=== PATIENT | female | born 1970 | race Caucasian/White ===

== ENCOUNTER → 2016-09-15 | Outpatient (CLI) | payer BC ==
[2016-09-08 17:47] VITALS: BP 109/64
[~2016-09-15] MED LIST: ATOR40TA59 PO; DOXY100C2 PO; FLEC100T PO; LEVO175T5 PO; METH25VI27 SQ; METO25TA2 PO; PROAIR HFA8.5 GM INH; WARF5TAB7 PO; WARF7.5T PO
--- NOTE | 2016-09-15 13:11 | KCIC ---
PROCEDURE Two-view chest HISTORY Atypical pneumonia. Cough. Wheezing. Former smoker. COMPARISON Two-view chest images from 09/08/2016 are available, although that report is not available for comparison. FINDINGS The cardiac silhouette remains mildly enlarged. Valvular prosthesis and postsurgical changes of the chest are re-demonstrated. No evidence of a pneumothorax. No focal airspace consolidation. No evidence of pleural effusion. The aorta remains mildly tortuous. IMPRESSION No significant change or focal airspace disease. Electronically signed by: Bi Perez MD (Sep 15, 2016 13:10:05)
== END | disposition home or self-care (01) ==
LOC: KCIC 12:34
PROVIDERS: ATTEND Nurse Practitioner Family
DX: J18.9 Pneumonia, unspecified organism (principal); R06.2 Wheezing; I51.7 Cardiomegaly; Z87.891 Personal history of nicotine dependence
CPT/HCPCS: 71020

== ENCOUNTER → 2017-05-03 | Outpatient (CLI) | payer BC ==
[2016-09-08 17:47] VITALS: BP 109/64
[~2017-05-03] MED LIST changes: -WARF7.5T PO; +WARF7.5T48 PO
[2017-05-03 15:24] LABS: INR 1.1 (0.8-1.1); PROTHROMBIN TIME PATIENT 13.4 SEC (11.7-14.0)
== END | disposition home or self-care (01) ==
LOC: LAB 14:36
PROVIDERS: ATTEND Internal Medicine Cardiovascular Disease
DX: I11.0 Hypertensive heart disease with heart failure (principal); I50.22 Chronic systolic (congestive) heart failure; I48.91 Unspecified atrial fibrillation; E78.00 Pure hypercholesterolemia, unspecified; J44.9 Chronic obstructive pulmonary disease, unspecified; D64.9 Anemia, unspecified; Z95.2 Presence of prosthetic heart valve
CPT/HCPCS: 36415; 85610

== ENCOUNTER → 2017-09-08 | Outpatient (CLI) | payer BC ==
[2016-09-08 17:47] VITALS: BP 109/64
--- NOTE | 2017-09-08 18:00 | CARD ---
MR#: [id number] Date of Study: 09/08/2017 Ordering Physician: COLT SILVA, Referring Physician: COLT SILVA, Tech: Nish Torres [facility] APPROVED REPORT EXAM: Two-dimensional and M-mode echocardiogram with Doppler and color Doppler. Other Information Quality : FairHR: 82bpm INDICATION Congenital Heart Disease Post Mitral valve replacement Surgery/Intervention Status/Post Mitral Valve Replacement: Mechanical 2D DIMENSIONS RVDd4.4 (2.9-3.5cm)Left Atrium(2D)4.0 (1.6-4.0cm) IVSd1.2 (0.7-1.1cm)Aortic Root(2D)2.6 (2.0-3.7cm) LVDd4.3 (3.9-5.9cm)LVOT Diameter1.8 (1.8-2.4cm) PWd1.3 (0.7-1.1cm)LVDs3.1 (2.5-4.0cm) FS (%) 27.7 %SV45.2 ml LVEF(%)54.1 (>50%) Aortic Valve AoV Peak Jasiel.163.4cm/sAoV VTI38.2cm AO Peak GR.10.7mmHgLVOT Peak Jasiel.95.5cm/s AO Mean GR.5mmHgAVA (VMAX)1.06cm2 Mitral Valve MV E Gvtsqnsg370.7cm/sMV DECEL [id number] MV A Jfheziln575.6cm/sMV VXU04fl E/A Ratio2.2MVA (PHT)3.28cm2 Pulmonary Valve PV Peak Pwmdjyqg611.1cm/sPV Peak Grad.4mmHg Tricuspid Valve TR P. Cruwcswt642kt/sTR Peak Gr.29mmHg LEFT VENTRICLE The left ventricle is normal size. There is mild concentric left ventricular hypertrophy. The left ve ntricular systolic function is normal and the ejection fraction is within normal range. EF 55% There is grossly normal LV segmental wall motion. Septal motion suggestive of prior surgery. Tissue Doppler imaging reveals moderate left ventricular diastolic dysfunction. RIGHT VENTRICLE The right ventricle is mildly dilated. The right ventricular systolic function is normal. ATRIA The left atrium is borderline dilated. The right atrium size is normal. The interatrial septum is int act with no evidence for an atrial septal defect or patent foramen ovale as noted on 2-D or Doppler i maging. AORTIC VALVE The aortic valve is thickened but opens well. Doppler and Color Flow revealed no significant aortic r egurgitation. There is mild to moderate valvular aortic stenosis. There is no aortic valvular vegetat ion. MITRAL VALVE Mechanical mitral prosthesis in place. Not well visualized. No significant regurgitation noted. MG of 8.7 mm Hg. TRICUSPID VALVE Not visualized well. Doppler and Color Flow revealed trace to mild tricuspid regurgitation. Doppler p rofile not well visualized. There is no tricuspid valve prolapse or vegetation. There is no tricuspid valve stenosis. PULMONIC VALVE Doppler and Color Flow revealed no pulmonic valvular regurgitation. There is no pulmonic valvular martinez nosis. GREAT VESSELS The aortic root is normal in size. The IVC is largel in size and collapses >50% with inspiration. PERICARDIAL EFFUSION There is no pleural effusion. There is no evidence of significant pericardial effusion. Critical Notification Critical Value: No <Conclusion> The left ventricular systolic function is normal and the ejection fraction is within normal range. EF 55% There is grossly normal LV segmental wall motion. Septal motion suggestive of prior surgery. Mechanical mitral prosthesis in place. Not well visualized. No significant regurgitation noted. MG of 8.7 mm Hg. Signed by : Colt Silva, Electronically Approved : 09/08/2017 17:59:40
== END | disposition home or self-care (01) ==
LOC: ECHO 09:56
PROVIDERS: ATTEND Internal Medicine Cardiovascular Disease
DX: I35.0 Nonrheumatic aortic (valve) stenosis (principal); I31.3 Pericardial effusion (noninflammatory); Q24.9 Congenital malformation of heart, unspecified; Z95.2 Presence of prosthetic heart valve
CPT/HCPCS: 93306

== ENCOUNTER 2017-09-12 03:05 | Emergency (ER) | payer BC ==
[2017-09-12 03:33] LABS: ADD MAN DIFF? NO
[2017-09-12 03:35] LABS: BASO % 1 % (0-3); EOS % 1 % (0-3); HEMATOCRIT 33.7 % (36.0-47.0); HEMOGLOBIN 10.8 g/dL (12.0-15.5); LYMPH # 0.5 x10^3/uL (1.0-4.8); LYMPH % 10 % (24-48); MEAN CORPUSCULAR HEMOGLOBIN 27 pg (25-35); MEAN CORPUSCULAR HGB CONC 32 g/dL (31-37); MEAN CORPUSCULAR VOLUME 83 fL (79-100); MONO # 0.7 x10^3/uL (0.0-1.1); MONO % 13 % (0-9); NEUT # 4.3 x10^3uL (1.8-7.7); NEUT % 76 % (31-73); PLATELET COUNT 149 x10^3/uL (140-400); RED BLOOD COUNT 4.04 x10^6/uL (3.50-5.40); RED CELL DISTRIBUTION WIDTH 17.9 % (11.5-14.5); WHITE BLOOD COUNT 5.6 x10^3/uL (4.0-11.0)
[2017-09-12 03:48] LABS: ANION GAP 8 (6-14); BLOOD UREA NITROGEN 15 mg/dL (7-20); BUN/CREATININE RATIO 21 (6-20); CARBON DIOXIDE 29 mmol/L (21-32); CHLORIDE 102 mmol/L (98-107); CREATININE 0.7 mg/dL (0.6-1.0); GFR 88.9; GLUCOSE 101 mg/dL (70-99); POTASSIUM 3.8 mmol/L (3.5-5.1); SODIUM 139 mmol/L (136-145)
[2017-09-12 03:53] LABS: ALBUMIN 3.1 g/dL (3.4-5.0); ALBUMIN/GLOBULIN RATIO 0.8 (1.0-1.7); ALK PHOS 62 U/L (46-116); ALT (SGPT) 38 U/L (14-59); AST (SGOT) 41 U/L (15-37); TOTAL BILIRUBIN 0.8 mg/dL (0.2-1.0); TOTAL PROTEIN 6.8 g/dL (6.4-8.2)
[2017-09-12 03:58] LABS: TROPONINI < 0.017 ng/mL (0.000-0.055)
[2017-09-12 03:59] LABS: NT-PRO BNP 750 pg/mL (0-124)
[2017-09-12] MEDS: IOHEXOL 300 MG/ML 100ML VIAL. IV (04:21)
[2017-09-12] MEDS: fentaNYL PF VIAL 100 MCG/2 ML VIAL IV (04:59)
== END 2017-09-12 06:10 | disposition home or self-care (01) ==
LOC: ER 03:05
DX: J18.9 Pneumonia, unspecified organism (principal); R07.89 Other chest pain; I50.9 Heart failure, unspecified; I48.91 Unspecified atrial fibrillation; E03.9 Hypothyroidism, unspecified; M06.9 Rheumatoid arthritis, unspecified; Z95.2 Presence of prosthetic heart valve; Z88.5 Allergy status to narcotic agent
CPT/HCPCS: 36415; 71275; 80053; 83880; 84484; 85025; 85379; 93005; 96374; 96375; 99285-25; J0690; J3010; Q9967

== ENCOUNTER → 2017-10-13 | Outpatient (CLI) | payer BC | END | disposition home or self-care (01) | LOC: RAD 15:36 | DX: R05 Cough (principal); R53.83 Other fatigue; Z95.2 Presence of prosthetic heart valve | CPT/HCPCS: 71046 ==

== ENCOUNTER 2017-10-15 17:02 | Inpatient (IN) | payer BC ==
[2017-10-15] MEDS: IPRATRPIUM/ALBUTEROL 0.5/2.5MG 3 ML NEBU. NEB (17:33)
[2017-10-15 17:39] LABS: ADD MAN DIFF? NO
[2017-10-15 17:44] LABS: BASO % 0 % (0-3); EOS # 0.1 x10^3/uL (0.0-0.7); EOS % 3 % (0-3); HEMATOCRIT 33.5 % (36.0-47.0); HEMOGLOBIN 10.8 g/dL (12.0-15.5); LYMPH # 0.6 x10^3/uL (1.0-4.8); LYMPH % 33 % (24-48); MEAN CORPUSCULAR HEMOGLOBIN 25 pg (25-35); MEAN CORPUSCULAR HGB CONC 32 g/dL (31-37); MEAN CORPUSCULAR VOLUME 78 fL (79-100); MONO # 0.3 x10^3/uL (0.0-1.1); MONO % 16 % (0-9); NEUT # 0.9 x10^3uL (1.8-7.7); NEUT % 48 % (31-73); PLATELET COUNT 140 x10^3/uL (140-400); RED BLOOD COUNT 4.31 x10^6/uL (3.50-5.40); RED CELL DISTRIBUTION WIDTH 18.3 % (11.5-14.5)
[2017-10-15] MEDS: IV NORMAL SALINE 1000ML BAG 1,000 ML IV (17:47)
[2017-10-15] MEDS: BENZONATATE 100 MG CAPSULE. PO (17:48)
[2017-10-15] MEDS: HYDROcodone/APAP 5/325MG 1 TAB TABLET PO (17:48)
[2017-10-15] MEDS: KETOROLAC 30 MG/ML INJ. IV (17:48)
[2017-10-15 17:53] LABS: WHITE BLOOD COUNT 1.9 x10^3/uL (4.0-11.0)
[2017-10-15 18:13] LABS: ANION GAP 6 (6-14); BLOOD UREA NITROGEN 17 mg/dL (7-20); BUN/CREATININE RATIO 28 (6-20); CALCIUM 8.3 mg/dL (8.5-10.1); CARBON DIOXIDE 31 mmol/L (21-32); CHLORIDE 102 mmol/L (98-107); CREATININE 0.6 mg/dL (0.6-1.0); GFR 106.3; GLUCOSE 112 mg/dL (70-99); POTASSIUM 3.7 mmol/L (3.5-5.1); SODIUM 139 mmol/L (136-145)
[2017-10-15 18:14] LABS: NT-PRO BNP 270 pg/mL (0-124)
[2017-10-15 18:18] LABS: ALBUMIN 3.3 g/dL (3.4-5.0); ALK PHOS 69 U/L (46-116); ALT (SGPT) 40 U/L (14-59); AST (SGOT) 52 U/L (15-37); MAGNESIUM 1.8 mg/dL (1.8-2.4); TOTAL BILIRUBIN 0.3 mg/dL (0.2-1.0); TOTAL PROTEIN 6.5 g/dL (6.4-8.2)
[2017-10-15 18:22] LABS: LACTIC ACID 1.3 mmol/L (0.4-2.0)
[2017-10-15 18:30] LABS: INFLUENZA A PATIENT NEGATIVE (NEGATIVE); INFLUENZA B PATIENT NEGATIVE (NEGATIVE); OBC FLU VALID
[2017-10-15] MEDS ORDERED: fentaNYL PF VIAL 100 MCG/2 ML VIAL IV (19:15)
[2017-10-15] MEDS ORDERED: ONDANSETRON PF 4 MG/2 ML VIAL. IV ×2 (19:15→20:30)
[2017-10-15] MEDS: AZITHRMYCN 500MG IVPB FOR OMNI 250 ML IV (19:56)
[2017-10-15 20:06] LABS: % ATYL 5 % (0-0); % BANDS 3 % (0-9); % EOS 4 % (0-5); % LYMPHS 32 % (24-48); % MONOS 9 % (0-10); % SEGS 47 % (35-66); ANISOCYTOSIS SLIGHT; PLT ESTIMATE ADEQUATE (ADEQUATE)
[2017-10-15 20:07] LABS: HYPOCHROMIA SLIGHT; OVALOCYTES FEW
[2017-10-15] MEDS ORDERED: cloNIDine HCL 0.1 MG TABLET PO (20:30)
[2017-10-15] MEDS ORDERED: ACETAMINOPHEN 500 MG TABLET PO (20:30)
[2017-10-15] MEDS ORDERED: diphenhydrAMINE HCL 25 MG CAPSULE PO (20:30)
[2017-10-15] MEDS ORDERED: guaiFENesin DM 200MG/20MG 10 ML SYRUP PO (20:30)
[2017-10-15] MEDS: LACTOBACILLUS RHAMNOSUS GG 1 CAPSULE. PO (22:31)
[2017-10-15] MEDS: FLECAINIDE ACETATE 50 MG TABLET. PO (22:32)
[2017-10-15] MEDS: METOPROLOL TART IMMED RELEASE 25 MG TABLET. PO ×2 (22:33→22:37)
[2017-10-16] MEDS: ANTI-COAG MONITOR BY PHARMACY. MC (01:01)
[2017-10-16] MEDS: LEVOTHYROXINE 175 MCG TABLET PO (06:04)
[2017-10-16 07:05] LABS: ANION GAP 6 (6-14); BLOOD UREA NITROGEN 18 mg/dL (7-20); CALCIUM 8.8 mg/dL (8.5-10.1); CARBON DIOXIDE 30 mmol/L (21-32); CHLORIDE 106 mmol/L (98-107); CREATININE 0.6 mg/dL (0.6-1.0); GFR 106.3; GLUCOSE 89 mg/dL (70-99); POTASSIUM 3.8 mmol/L (3.5-5.1); SODIUM 142 mmol/L (136-145)
[2017-10-16 07:09] LABS: BASO % 0 % (0-3); EOS # 0.1 x10^3/uL (0.0-0.7); EOS % 3 % (0-3); HEMATOCRIT 29.4 % (36.0-47.0); HEMOGLOBIN 9.5 g/dL (12.0-15.5); LYMPH # 0.6 x10^3/uL (1.0-4.8); LYMPH % 28 % (24-48); MEAN CORPUSCULAR HEMOGLOBIN 25 pg (25-35); MEAN CORPUSCULAR HGB CONC 32 g/dL (31-37); MEAN CORPUSCULAR VOLUME 78 fL (79-100); MONO # 0.3 x10^3/uL (0.0-1.1); MONO % 14 % (0-9); NEUT # 1.1 x10^3uL (1.8-7.7); NEUT % 55 % (31-73); PLATELET COUNT 120 x10^3/uL (140-400); RED BLOOD COUNT 3.75 x10^6/uL (3.50-5.40); RED CELL DISTRIBUTION WIDTH 18.2 % (11.5-14.5)
[2017-10-16 07:18] LABS: ADD MAN DIFF? YES
[2017-10-16] MEDS: RIVAROXABAN 10 MG TABLET. PO (09:36)
[2017-10-16] MEDS: predniSONE 5 MG TABLET PO (09:37)
[2017-10-16] MEDS: LACTOBACILLUS RHAMNOSUS GG 1 CAPSULE. PO (09:37)
[2017-10-16] MEDS: FLECAINIDE ACETATE 50 MG TABLET. PO ×2 (09:38→20:48)
[2017-10-16] MEDS: METOPROLOL SUCC 24HR ER 25 MG TAB.ER.24H. PO (09:39)
[2017-10-16] MEDS: LIOTHYRONINE 5 MCG TABLET. PO (10:16)
[2017-10-16 10:18] LABS: % ATYL 4 % (0-0); % BANDS 3 % (0-9); % EOS 5 % (0-5); % LYMPHS 20 % (24-48); % MONOS 13 % (0-10); % SEGS 55 % (35-66); PLT ESTIMATE ADEQUATE (ADEQUATE)
[2017-10-16] MEDS: IPRATRPIUM/ALBUTEROL 0.5/2.5MG 3 ML NEBU. NEB ×3 (11:51→19:37)
[2017-10-16] MEDS ORDERED: WARFARIN 7.5 MG TABLET. PO (18:00)
[2017-10-16] MEDS: cefTRIAXone IV Push 1 GM VIAL. IVP (20:47)
[2017-10-17] MEDS: LEVOTHYROXINE 175 MCG TABLET PO (06:40)
[2017-10-17] MEDS: IPRATRPIUM/ALBUTEROL 0.5/2.5MG 3 ML NEBU. NEB ×3 (07:14→15:59)
[2017-10-17] MEDS: METOPROLOL SUCC 24HR ER 25 MG TAB.ER.24H. PO (09:58)
[2017-10-17] MEDS: RIVAROXABAN 10 MG TABLET. PO (09:59)
[2017-10-17] MEDS: FLECAINIDE ACETATE 50 MG TABLET. PO (09:59)
[2017-10-17] MEDS: predniSONE 5 MG TABLET PO (09:59)
[2017-10-17] MEDS: LIOTHYRONINE 5 MCG TABLET. PO (09:59)
[2017-10-22] MEDS ORDERED: METHOTREXATE SODIUM 50 MG/2 ML VIAL SQ (09:00)
== END 2017-10-17 16:46 | disposition home or self-care (01) | DRG 193 ==
LOC: ER 17:02 → 5 SOUTH 19:05
DX: J18.9 Pneumonia, unspecified organism (principal); J96.21 Acute and chronic respiratory failure with hypoxia; I48.91 Unspecified atrial fibrillation; E86.0 Dehydration; D72.819 Decreased white blood cell count, unspecified; E03.9 Hypothyroidism, unspecified; Z95.2 Presence of prosthetic heart valve; E66.9 Obesity, unspecified; M06.9 Rheumatoid arthritis, unspecified; J20.9 Acute bronchitis, unspecified; I10 Essential (primary) hypertension; R06.03 Acute respiratory distress; Z83.3 Family history of diabetes mellitus; Z82.49 Family history of ischemic heart disease and other diseases of the circulatory system; Z68.37 Body mass index [BMI] 37.0-37.9, adult; Z98.51 Tubal ligation status; Z79.899 Other long term (current) drug therapy
CPT/HCPCS: 36415; 71045; 80048; 80053; 83605; 83735; 83880; 84484; 85007; 85025; 87040; 87804; 87804-59; 94640; 94760; 96361; 96374; 99285; 99285-25; J0456; J0690; J0696; J1885; J7030; J7512; J7620

== ENCOUNTER → 2017-12-14 | Outpatient (CLI) | payer BC | END | disposition home or self-care (01) | LOC: RAD 10:28 | DX: I51.7 Cardiomegaly (principal); R06.09 Other forms of dyspnea | CPT/HCPCS: 71046 ==

== ENCOUNTER 2017-12-16 12:42 | Inpatient (IN) | payer BC ==
[2017-12-16] MEDS: IV NORMAL SALINE 1000ML BAG 1,000 ML IV ×3 (12:56→21:15)
[2017-12-16 13:21] LABS: BASO % 0 % (0-3); EOS % 2 % (0-3); HEMATOCRIT 26.9 % (36.0-47.0); HEMOGLOBIN 8.4 g/dL (12.0-15.5); LYMPH # 0.3 x10^3/uL (1.0-4.8); LYMPH % 18 % (24-48); MEAN CORPUSCULAR HEMOGLOBIN 22 pg (25-35); MEAN CORPUSCULAR HGB CONC 31 g/dL (31-37); MEAN CORPUSCULAR VOLUME 69 fL (79-100); MONO # 0.2 x10^3/uL (0.0-1.1); MONO % 12 % (0-9); NEUT # 1.3 x10^3uL (1.8-7.7); NEUT % 68 % (31-73); PLATELET COUNT 172 x10^3/uL (140-400); RED BLOOD COUNT 3.89 x10^6/uL (3.50-5.40); RED CELL DISTRIBUTION WIDTH 18.8 % (11.5-14.5)
[2017-12-16 13:35] LABS: ANION GAP 9 (6-14); BLOOD UREA NITROGEN 12 mg/dL (7-20); CALCIUM 9.1 mg/dL (8.5-10.1); CARBON DIOXIDE 28 mmol/L (21-32); CHLORIDE 103 mmol/L (98-107); CREATININE 0.6 mg/dL (0.6-1.0); GFR 106.3; GLUCOSE 91 mg/dL (70-99); POTASSIUM 3.7 mmol/L (3.5-5.1); SODIUM 140 mmol/L (136-145)
[2017-12-16 13:38] LABS: ADD MAN DIFF? YES
[2017-12-16] MEDS: 0.9 % SODIUM CHLORIDE 10 ML DISP.SYRIN. IV (13:43)
[2017-12-16] MEDS: ASPIRIN CHEWABLE 81 MG TABLET. PO (13:43)
[2017-12-16 13:45] LABS: BARBITURATES NEG (NEG); BENZODIAZEPINES NEG (NEG); CANNABINOIDS NEG (NEG); COCAINE NEG (NEG); INR 1.7 (0.8-1.1); METHADONE NEG (NEG); OPIATES NEG (NEG); PHENCYCLIDINE NEG (NEG); PROTHROMBIN TIME PATIENT 19.1 SEC (11.7-14.0)
[2017-12-16 13:46] LABS: ALBUMIN 3.2 g/dL (3.4-5.0); ALK PHOS 82 U/L (46-116); ALT (SGPT) 21 U/L (14-59); AST (SGOT) 32 U/L (15-37); DIRECT BILIRUBIN 0.1 mg/dL (0.0-0.2); LIPASE 271 U/L (73-393); MAGNESIUM 1.7 mg/dL (1.8-2.4); TOTAL BILIRUBIN 0.5 mg/dL (0.2-1.0); TOTAL PROTEIN 7.5 g/dL (6.4-8.2)
[2017-12-16 13:47] LABS: AMPHETAMINE/METHAMPHETAMINE NEG (NEG); ETHANOL, URINE NEG (NEG)
[2017-12-16 13:47] LABS: TROPONINI < 0.017 ng/mL (0.000-0.055)
[2017-12-16 13:48] LABS: THYROID STIM HORMONE (TSH) 0.035 uIU/mL (0.358-3.74)
[2017-12-16 13:48] LABS: BILIRUBIN,URINE NEGATIVE (NEG); CLARITY,URINE CLEAR; COLOR,URINE YELLOW; GLUCOSE,URINE NEGATIVE (NEG); NITRITE,URINE NEGATIVE (NEG); PH,URINE 7.5; PROTEIN,URINE 30 mg/dL (NEG-TRACE)
[2017-12-16 13:55] LABS: CKMB MASS < 0.5 ng/mL (0.0-3.6); CREATINE KINASE 33 U/L (26-192)
[2017-12-16 13:55] LABS: NT-PRO BNP 1077 pg/mL (0-124)
[2017-12-16 13:59] LABS: BACTERIA,URINE FEW /HPF (0-FEW); SQUAMOUS EPITHELIAL CELL,UR FEW /LPF
[2017-12-16 14:43] LABS: % BANDS 1 % (0-9); % LYMPHS 23 % (24-48); % MONOS 3 % (0-10); % SEGS 73 % (35-66)
[2017-12-16 14:45] LABS: HYPOCHROMIA SLIGHT; MICROCYTOSIS MOD; OVALOCYTES OCC; PLATELET CLUMP PRESENT; PLT ESTIMATE DECREASED (ADEQUATE); SCHISTOCYTES OCC
[2017-12-16] MEDS ORDERED: ACETAMINOPHEN 325 MG TABLET. PO (15:00)
[2017-12-16] MEDS ORDERED: NITROGLYCERIN SUBLINGUAL 0.4 MG BOTTLE OF 25. SL (15:00)
[2017-12-16] MEDS ORDERED: ONDANSETRON PF 4 MG/2 ML VIAL. IV (15:00)
[2017-12-16] MEDS: fentaNYL PF VIAL 100 MCG/2 ML VIAL IV ×2 (15:08→21:02)
[2017-12-16] MEDS: MAGNESIUM SULFATE 1GM 100 ML IV (17:22)
[2017-12-16 18:12] LABS: TROPONINI < 0.017 ng/mL (0.000-0.055)
[2017-12-16] MEDS ORDERED: RIVAROXABAN 10 MG TABLET. PO (18:30)
[2017-12-16] MEDS: METOPROLOL SUCC 24HR ER 25 MG TAB.ER.24H. PO (21:02)
[2017-12-16 21:06] LABS: TROPONINI < 0.017 ng/mL (0.000-0.055)
[2017-12-17] MEDS: IV NORMAL SALINE 1000ML BAG 1,000 ML IV (05:06)
[2017-12-17 05:54] LABS: CHOLESTEROL 117 mg/dL (0-200); CHOLESTEROL/HDL RATIO 3.2; HDLC 37 mg/dL (40-60); LDLC 70 mg/dL (0-100); NON-HDL CHOLESTEROL 80 mg/dL (0-129); TRIGLYCERIDES 49 mg/dL (0-150); VLDLC 10 mg/dL (0-40)
[2017-12-17] MEDS: REGADENOSON 0.4 MG/5 ML DISP.SYRIN. IV (09:07)
[2017-12-17] MEDS ORDERED: ONDANSETRON PF 4 MG/2 ML VIAL. IV (09:45)
[2017-12-17] MEDS: LIDOCAINE (700MG/PATCH) PATCH. TD (12:08)
[2017-12-17] MEDS: METOPROLOL SUCC 24HR ER 25 MG TAB.ER.24H. PO ×2 (12:09→20:46)
[2017-12-17] MEDS: RIVAROXABAN 10 MG TABLET. PO (12:09)
[2017-12-17] MEDS: ANTI-COAG MONITOR BY PHARMACY. MC (14:50)
[2017-12-17] MEDS ORDERED: traMADol 50 MG TABLET PO (23:45)
[2017-12-18] MEDS: ACETAMINOPHEN 325 MG TABLET. PO (00:05)
[2017-12-18] MEDS: METOPROLOL SUCC 24HR ER 25 MG TAB.ER.24H. PO (08:36)
[2017-12-18] MEDS: RIVAROXABAN 10 MG TABLET. PO (08:36)
== END 2017-12-18 13:00 | disposition home or self-care (01) | DRG 313 ==
LOC: ER 12:42 → 5 NORTH 14:56
DX: R07.89 Other chest pain (principal); I48.1 Persistent atrial fibrillation; Z95.2 Presence of prosthetic heart valve; D63.8 Anemia in other chronic diseases classified elsewhere; E03.9 Hypothyroidism, unspecified; E66.9 Obesity, unspecified; E78.5 Hyperlipidemia, unspecified; I10 Essential (primary) hypertension; M06.9 Rheumatoid arthritis, unspecified; D72.819 Decreased white blood cell count, unspecified; M19.90 Unspecified osteoarthritis, unspecified site; Z68.35 Body mass index [BMI] 35.0-35.9, adult; Z79.01 Long term (current) use of anticoagulants; Z88.5 Allergy status to narcotic agent; Z82.49 Family history of ischemic heart disease and other diseases of the circulatory system; Z86.73 Personal history of transient ischemic attack (TIA), and cerebral infarction without residual deficits; Z87.442 Personal history of urinary calculi; Z98.51 Tubal ligation status
CPT/HCPCS: 36415; 71045; 78452; 80048; 80061; 80076; 80307; 81001; 82553; 83690; 83735; 83880; 84443; 84484; 85007; 85025; 85610; 93005; 93017; 96374; 96375; 96376; 99285; 99285-25; A9500; J2785; J3010; J3475; J7030

== ENCOUNTER → 2017-12-27 | Outpatient (CLI) | payer BC | END | disposition home or self-care (01) | LOC: RAD 15:42 | DX: M51.46 Schmorl's nodes, lumbar region (principal); I11.0 Hypertensive heart disease with heart failure; I50.9 Heart failure, unspecified; Z79.01 Long term (current) use of anticoagulants | CPT/HCPCS: 72100 ==

== ENCOUNTER 2017-12-31 10:41 | Inpatient (IN) | payer BC ==
[2017-12-31] MEDS: IPRATRPIUM/ALBUTEROL 0.5/2.5MG 3 ML NEBU. NEB (11:18)
[2017-12-31 11:24] LABS: BASO % 0 % (0-3); EOS % 1 % (0-3); HEMOGLOBIN 8.8 g/dL (12.0-15.5); LYMPH # 0.2 x10^3/uL (1.0-4.8); LYMPH % 8 % (24-48); MEAN CORPUSCULAR HEMOGLOBIN 21 pg (25-35); MEAN CORPUSCULAR HGB CONC 31 g/dL (31-37); MEAN CORPUSCULAR VOLUME 69 fL (79-100); MONO # 0.1 x10^3/uL (0.0-1.1); MONO % 5 % (0-9); NEUT # 2.6 x10^3uL (1.8-7.7); NEUT % 86 % (31-73); PLATELET COUNT 185 x10^3/uL (140-400); RED BLOOD COUNT 4.22 x10^6/uL (3.50-5.40); RED CELL DISTRIBUTION WIDTH 19.1 % (11.5-14.5)
[2017-12-31 11:27] LABS: BILIRUBIN,URINE NEGATIVE (NEG); CLARITY,URINE CLEAR; GLUCOSE,URINE NEGATIVE (NEG); NITRITE,URINE NEGATIVE (NEG); PROTEIN,URINE NEGATIVE (NEG-TRACE); UROBILINOGEN,URINE 0.2 mg/dL (0.2 mg/dL)
[2017-12-31 11:32] LABS: ANION GAP 6 (6-14); BLOOD UREA NITROGEN 17 mg/dL (7-20); BUN/CREATININE RATIO 28 (6-20); CALCIUM 9.5 mg/dL (8.5-10.1); CARBON DIOXIDE 30 mmol/L (21-32); CHLORIDE 105 mmol/L (98-107); CREATININE 0.6 mg/dL (0.6-1.0); GFR 106.3; GLUCOSE 120 mg/dL (70-99); POTASSIUM 4.2 mmol/L (3.5-5.1); SODIUM 141 mmol/L (136-145)
[2017-12-31 11:33] LABS: ADD MAN DIFF? YES
[2017-12-31 11:37] LABS: NEG OBC SER NEG; POS OBC SER POS; PREG TEST PT QUAL NEGATIVE (NEG)
[2017-12-31 11:39] LABS: BACTERIA,URINE FEW /HPF (0-FEW); COLOR,URINE COLORLESS; WBC,URINE OCC /HPF (0-4)
[2017-12-31 11:40] LABS: ALBUMIN 3.3 g/dL (3.4-5.0); ALBUMIN/GLOBULIN RATIO 0.7 (1.0-1.7); ALK PHOS 92 U/L (46-116); ALT (SGPT) 28 U/L (14-59); AST (SGOT) 33 U/L (15-37); TOTAL BILIRUBIN 0.5 mg/dL (0.2-1.0); TOTAL PROTEIN 7.9 g/dL (6.4-8.2)
[2017-12-31 11:57] LABS: D-DIMER 4.08 ug/mlFEU (0.00-0.50)
[2017-12-31] MEDS ORDERED: CONTRAST GIVEN MC (12:15)
[2017-12-31] MEDS: IOHEXOL 300 MG/ML 100ML VIAL. IV (12:15)
[2017-12-31 13:49] LABS: % MONOS 3 % (0-10); % SEGS 90 % (35-66); NUCLEATED RBC 1
[2017-12-31 13:50] LABS: % LYMPHS 6 % (24-48); ANISOCYTOSIS SLIGHT; HYPOCHROMIA MARKED; MICROCYTOSIS MARKED
[2017-12-31 14:20] LABS: PLT ESTIMATE ADEQUATE (ADEQUATE)
[2017-12-31] MEDS: fentaNYL PF VIAL 100 MCG/2 ML VIAL IV ×2 (14:27→20:05)
[2017-12-31] MEDS ORDERED: ONDANSETRON PF 4 MG/2 ML VIAL. IV (14:30)
[2017-12-31] MEDS ORDERED: ACETAMINOPHEN 500 MG TABLET PO (14:30)
[2017-12-31] MEDS ORDERED: ONDANSETRON ODT 4 MG TAB.RAPDIS. PO (14:30)
[2017-12-31] MEDS ORDERED: ASPIRIN 325 MG TABLET (14:44)
[2017-12-31] MEDS: ASPIRIN CHEWABLE 81 MG TABLET. PO (14:47)
[2017-12-31 15:16] LABS: TROPONINI < 0.017 ng/mL (0.000-0.055)
[2017-12-31 15:38] LABS: INR 1.5 (0.8-1.1); PROTHROMBIN TIME PATIENT 17.9 SEC (11.7-14.0)
[2017-12-31] MEDS ORDERED: RIVAROXABAN 10 MG TABLET. PO (17:00)
[2017-12-31] MEDS: ALBUTEROL SULFATE 2.5 MG/3 ML NEBU. NEB ×2 (17:59→20:26)
[2017-12-31] MEDS: METOPROLOL SUCC 24HR ER 25 MG TAB.ER.24H. PO (20:04)
[2017-12-31] MEDS: BUDESONIDE 0.5 MG/2 ML NEBU. NEB (20:25)
[2017-12-31] MEDS ORDERED: FLECAINIDE ACETATE 50 MG TABLET. PO (21:00)
[2017-12-31 23:14] LABS: UNFRACTIONATED HEPARIN TESTING 0.99 IU/mL (0.30-0.70)
[2018-01-01] MEDS: LEVOTHYROXINE 175 MCG TABLET PO (06:13)
[2018-01-01] MEDS: BUDESONIDE 0.5 MG/2 ML NEBU. NEB ×2 (07:10→20:12)
[2018-01-01] MEDS: ALBUTEROL SULFATE 2.5 MG/3 ML NEBU. NEB ×4 (07:10→20:12)
[2018-01-01 07:16] LABS: UNFRACTIONATED HEPARIN TESTING 0.58 IU/mL (0.30-0.70)
[2018-01-01] MEDS: ASPIRIN ENTERIC COATED 81 MG TABLET.DR. PO (07:42)
[2018-01-01] MEDS: HEPARIN 25,000UTS/500ML PREMIX 500 ML IV ×2 (07:45→21:48)
[2018-01-01] MEDS ORDERED: NON FORMULARY ITEM (Fluticasone/Salmeterol (Advair 250-50 Diskus) 1 PUFF) IH (09:00)
[2018-01-01] MEDS: LIOTHYRONINE 5 MCG TABLET. PO (09:18)
[2018-01-01] MEDS: METOPROLOL SUCC 24HR ER 25 MG TAB.ER.24H. PO ×2 (09:18→21:39)
[2018-01-01 14:21] LABS: UNFRACTIONATED HEPARIN TESTING 0.46 IU/mL (0.30-0.70)
[2018-01-01 20:44] LABS: UNFRACTIONATED HEPARIN TESTING 0.42 IU/mL (0.30-0.70)
[2018-01-01] MEDS: fentaNYL PF VIAL 100 MCG/2 ML VIAL IV (21:40)
[2018-01-02 05:48] LABS: HEMATOCRIT 26.2 % (36.0-47.0); HEMOGLOBIN 8.2 g/dL (12.0-15.5); MEAN CORPUSCULAR HGB CONC 31 g/dL (31-37)
[2018-01-02 05:50] LABS: INR 1.2 (0.8-1.1); PROTHROMBIN TIME PATIENT 14.5 SEC (11.7-14.0)
[2018-01-02] MEDS: LEVOTHYROXINE 175 MCG TABLET PO (06:52)
[2018-01-02] MEDS: ALBUTEROL SULFATE 2.5 MG/3 ML NEBU. NEB ×4 (07:26→19:43)
[2018-01-02] MEDS: BUDESONIDE 0.5 MG/2 ML NEBU. NEB ×2 (07:26→19:43)
[2018-01-02] MEDS: ASPIRIN ENTERIC COATED 81 MG TABLET.DR. PO (08:53)
[2018-01-02] MEDS: LIOTHYRONINE 5 MCG TABLET. PO (08:54)
[2018-01-02] MEDS: fentaNYL PF VIAL 100 MCG/2 ML VIAL IV ×2 (09:02→21:31)
[2018-01-02] MEDS: METOPROLOL SUCC 24HR ER 25 MG TAB.ER.24H. PO ×2 (09:02→21:30)
[2018-01-03] MEDS: HEPARIN 25,000UTS/500ML PREMIX 500 ML IV (03:59)
[2018-01-03] MEDS: fentaNYL PF VIAL 100 MCG/2 ML VIAL IV ×2 (05:49→15:06)
[2018-01-03 06:15] LABS: UNFRACTIONATED HEPARIN TESTING < 0.10 IU/mL (0.30-0.70)
[2018-01-03] MEDS: BUDESONIDE 0.5 MG/2 ML NEBU. NEB ×2 (07:24→20:17)
[2018-01-03] MEDS: ALBUTEROL SULFATE 2.5 MG/3 ML NEBU. NEB ×4 (07:24→20:17)
[2018-01-03] MEDS: HEPARIN for IV BOLUS 10,000 UNIT/10 ML VIAL. IV (07:43)
[2018-01-03] MEDS: LEVOTHYROXINE 175 MCG TABLET PO (08:31)
[2018-01-03] MEDS: METOPROLOL SUCC 24HR ER 25 MG TAB.ER.24H. PO ×2 (09:00→20:58)
[2018-01-03] MEDS ORDERED: IODIXANOL 320 MG/ML 100 ML VIAL. (13:08)
[2018-01-03] MEDS ORDERED: LIDOCAINE 2% 20 ML VIAL. ×2 (13:08→14:08)
[2018-01-03 13:26] LABS: UNFRACTIONATED HEPARIN TESTING 0.19 IU/mL (0.30-0.70)
[2018-01-03] MEDS ORDERED: MIDAZOLAM HCL/PF 2 MG/2 ML VIAL. (13:28)
[2018-01-03] MEDS ORDERED: fentaNYL PF VIAL 100 MCG/2 ML VIAL (13:29)
[2018-01-03] MEDS: IODIXANOL 320 MG/ML 100 ML VIAL. IART (13:30)
[2018-01-03] MEDS: LIDOCAINE 2% 20 ML VIAL. IJ (15:05)
[2018-01-03] MEDS: MIDAZOLAM HCL/PF 2 MG/2 ML VIAL. IV (15:06)
[2018-01-03] MEDS: IBUPROFEN 400 MG TABLET. PO (17:14)
[2018-01-03] MEDS: LIOTHYRONINE 5 MCG TABLET. PO (17:14)
[2018-01-03] MEDS: ASPIRIN ENTERIC COATED 81 MG TABLET.DR. PO (17:14)
[2018-01-03] MEDS: IV NORMAL SALINE 1000ML BAG 1,000 ML IV (20:54)
[2018-01-04 04:57] LABS: UNFRACTIONATED HEPARIN TESTING 0.14 IU/mL (0.30-0.70)
[2018-01-04] MEDS: HEPARIN for IV BOLUS 10,000 UNIT/10 ML VIAL. IV (05:24)
[2018-01-04] MEDS: LEVOTHYROXINE 175 MCG TABLET PO (06:32)
[2018-01-04] MEDS: ALBUTEROL SULFATE 2.5 MG/3 ML NEBU. NEB ×2 (07:16→12:20)
[2018-01-04] MEDS: BUDESONIDE 0.5 MG/2 ML NEBU. NEB (07:16)
[2018-01-04 07:43] LABS: HEMATOCRIT 28.4 % (36.0-47.0); HEMOGLOBIN 8.9 g/dL (12.0-15.5); MEAN CORPUSCULAR HEMOGLOBIN 22 pg (25-35); MEAN CORPUSCULAR HGB CONC 31 g/dL (31-37); MEAN CORPUSCULAR VOLUME 69 fL (79-100); PLATELET COUNT 182 x10^3/uL (140-400); RED BLOOD COUNT 4.13 x10^6/uL (3.50-5.40); RED CELL DISTRIBUTION WIDTH 19.5 % (11.5-14.5); WHITE BLOOD COUNT 2.9 x10^3/uL (4.0-11.0)
[2018-01-04 07:51] LABS: ALBUMIN/GLOBULIN RATIO 0.8 (1.0-1.7); ALK PHOS 78 U/L (46-116); ALT (SGPT) 24 U/L (14-59); ANION GAP 7 (6-14); AST (SGOT) 28 U/L (15-37); BLOOD UREA NITROGEN 17 mg/dL (7-20); BUN/CREATININE RATIO 28 (6-20); CALCIUM 8.6 mg/dL (8.5-10.1); CARBON DIOXIDE 29 mmol/L (21-32); CHLORIDE 105 mmol/L (98-107); CREATININE 0.6 mg/dL (0.6-1.0); GFR 106.3; GLUCOSE 105 mg/dL (70-99); POTASSIUM 4.3 mmol/L (3.5-5.1); SODIUM 141 mmol/L (136-145); TOTAL BILIRUBIN 0.4 mg/dL (0.2-1.0); TOTAL PROTEIN 6.7 g/dL (6.4-8.2)
[2018-01-04 08:00] LABS: THYROID STIM HORMONE (TSH) 0.052 uIU/mL (0.358-3.74)
[2018-01-04] MEDS: METOPROLOL SUCC 24HR ER 25 MG TAB.ER.24H. PO (09:00)
[2018-01-04] MEDS: ASPIRIN ENTERIC COATED 81 MG TABLET.DR. PO (09:00)
[2018-01-04] MEDS: LIOTHYRONINE 5 MCG TABLET. PO (09:01)
[2018-01-04] MEDS: IV NORMAL SALINE 1000ML BAG 1,000 ML IV (10:56)
[2018-01-04] MEDS: HEPARIN 25,000UTS/500ML PREMIX 500 ML IV (10:59)
[2018-01-04 11:35] LABS: UNFRACTIONATED HEPARIN TESTING 0.29 IU/mL (0.30-0.70)
[2018-01-04] MEDS: ANTI-COAG MONITOR BY PHARMACY. MC (12:52)
[2018-01-14] MEDS ORDERED: NON FORMULARY ITEM (Adalimumab (Humira) 1 SYR) SQ (09:00)
== END 2018-01-04 16:57 | disposition home or self-care (01) | DRG 286 ==
LOC: ER 10:41 → 2 NORTH 14:00
PROC: 4A023N8 Measurement of Cardiac Sampling and Pressure, Bilateral, Percutaneous Approach (ICD-10-PCS; principal; 2018-01-03)
PROC: B2151ZZ Fluoroscopy of Left Heart using Low Osmolar Contrast (ICD-10-PCS; 2018-01-03)
PROC: B2111ZZ Fluoroscopy of Multiple Coronary Arteries using Low Osmolar Contrast (ICD-10-PCS; 2018-01-03)
DX: R07.89 Other chest pain (principal); J18.9 Pneumonia, unspecified organism; I27.20 Pulmonary hypertension, unspecified; I48.1 Persistent atrial fibrillation; J44.0 Chronic obstructive pulmonary disease with (acute) lower respiratory infection; E03.9 Hypothyroidism, unspecified; D72.819 Decreased white blood cell count, unspecified; E66.9 Obesity, unspecified; E78.5 Hyperlipidemia, unspecified; I10 Essential (primary) hypertension; F41.9 Anxiety disorder, unspecified; D63.8 Anemia in other chronic diseases classified elsewhere; M06.9 Rheumatoid arthritis, unspecified; M19.90 Unspecified osteoarthritis, unspecified site; Z68.35 Body mass index [BMI] 35.0-35.9, adult; Z87.442 Personal history of urinary calculi; Z79.82 Long term (current) use of aspirin; Z82.49 Family history of ischemic heart disease and other diseases of the circulatory system; Z86.73 Personal history of transient ischemic attack (TIA), and cerebral infarction without residual deficits; Z95.2 Presence of prosthetic heart valve; Z79.01 Long term (current) use of anticoagulants; Z98.51 Tubal ligation status
CPT/HCPCS: 36415; 71045; 71275; 80053; 81001; 84443; 84484; 84703; 85007; 85014; 85018; 85025; 85027; 85379; 85520; 85610; 93005; 93460; 94640; 94760; 96374; 99152; 99153; 99285-25; C1769; C1771; C1773; C1892; G0269; J1644; J2250; J3010; J7030; J7613; J7620; J7626; Q9967

== ENCOUNTER 2018-07-07 12:44 | Emergency (ER) | payer BC, OTHER ==
[~2018-07-07] VITALS: Ht 167.6 cm; Wt 95.3 kg
[~2018-07-07 12:44] MED LIST changes: +ADAL40PE SQ; +AZIT250T PO; +FLUT1DIS3 IH; +LIOT25TA3 PO; +METH2.5T PO; +PRED-220 PO; +RIVA20TA2 PO; +WARF-31 PO; -WARF5TAB7 PO
[2018-07-07 12:56] VITALS: BP 170/84
--- NOTE | 2018-07-07 14:01 | RAD ---
ANKLE LEFT 3V Clinical Indication: TRIPPED OVER MIRROR TODAY LATERAL MALLEOLUS PAIN AND SWELLING Comparison: None. Findings: Suspect ankle joint effusion. Plantar calcaneal enthesophyte. No acute fracture or dislocation. Mild lateral ankle soft tissue swelling. Mineralization is normal. IMPRESSION: 1. No acute fracture. 2. Soft tissue injury. Electronically signed by: Pipo Davison MD (07/07/2018 1:58 PM) [id number]
--- NOTE | 2018-07-07 14:10 | PHYS DOC ---
Past Medical History Past Medical History: No Pertinent History Additional Past Medical Histor: obesity, RA, mitral valve replacement Past Surgical History: Tubal ligation Additional Past Surgical Histo: mitral vavle replacement, RA Alcohol Use: None Drug Use: None Adult General Chief Complaint Chief Complaint: ANKLE PROBLEM [facility] Patient is a 48 year old female who presents with ankle pain after she tripped over a mirror at work. She has swelling to her left ankle but is able to bear weight on the extremity. She denies loss of consciousness or any other injury. Review of Systems Review of Systems Constitutional: Denies fever or chills [] Respiratory: Denies cough or shortness of breath [] Cardiovascular: No additional information not addressed in HPI [] GI: Denies abdominal pain, nausea, vomiting, bloody stools or diarrhea [] : Denies dysuria or hematuria [] Musculoskeletal: See history of present illness Integument: Denies rash or skin lesions [] Neurologic: Denies headache, focal weakness or sensory changes [] Endocrine: Denies polyuria or polydipsia [] All other systems were reviewed and found to be within normal limits, except as documented in this note. Allergies Allergies Allergies Coded Allergies Type Severity Reaction Last Updated Verified morphine Allergy Severe Can't breath 10/16/17 Yes Physical Exam Physical Exam Constitutional: Well developed, well nourished, no acute distress, non-toxic appearance. [] Cardiovascular:Heart rate regular rhythm, no murmur [] Lungs & Thorax: Bilateral breath sounds clear to auscultation [] Abdomen: Bowel sounds normal, soft, no tenderness, no masses, no pulsatile masses. [] Skin: Warm, dry, no erythema, no rash. [] Back: No tenderness, no CVA tenderness. [] Extremities: tenderness over left lateral malleolus with palpation, no cyanosis , no clubbing, ROM intact, moderate edema, pulses and sensation are intact distal to injury. [] Neurologic: Alert and oriented X 3, normal motor function, normal sensory function, no focal deficits noted. [] Psychologic: Affect normal, judgement normal, mood normal. [] Current Patient Data Vital Signs Vital Signs Date Time Temp Pulse Resp B/P (MAP) Pulse Ox O2 Delivery O2 Flow Rate FiO2 07/07/18 12:56 97.4 72 18 170/84 (112) 95 Room Air 97.4 EKG EKG [] Radiology/Procedures Radiology/Procedures [] PATIENT: RADHA GONZALEZ ACCOUNT: [id number] : 1970 LOCATION: ER AGE: 48 SEX: F EXAM STATUS: REG ER ORD. PHYSICIAN: SADIA FONSECA APRN REASON: tripped over mirror at work, lateral malleolus pain and edema PROCEDURE: ANKLE LEFT 3V ANKLE LEFT 3V Clinical Indication: TRIPPED OVER MIRROR TODAY LATERAL MALLEOLUS PAIN AND SWELLING Comparison: None. Findings: Suspect ankle joint effusion. Plantar calcaneal enthesophyte. No acute fracture or dislocation. Mild lateral ankle soft tissue swelling. Mineralization is normal. IMPRESSION: 1. No acute fracture. 2. Soft tissue injury. Electronically signed by: Pipo Davison MD (07/07/2018 1:58 PM) [id number] DICTATED and SIGNED BY: PIPO DAVISON MD DATE: 07/07/18 1354 Course & Med Decision Making Course & Med Decision Making Pertinent Labs and Imaging studies reviewed. (See chart for details) []The patient was placed in an Reji wrap for comfort. Dragon Disclaimer Dragon Disclaimer This electronic medical record was generated, in whole or in part, using a voice recognition dictation system. Departure Departure Impression: Primary Impression: Contusion Disposition: 01 HOME, SELF-CARE Condition: STABLE Referrals: QUIANA CARRIZALES (PCP) Patient Instructions: Contusion, Elastic Bandage and RICE Additional Instructions: RICE the extremity. You may take ibuprofen or Tylenol for pain. Follow-up with your primary care provider for possible referral to orthopedics if not improving in 3 days. SADIA FONSECA APRN Jul 07, 2018 14:10
== END 2018-07-07 14:17 | disposition home or self-care (01) ==
LOC: ER 12:44
DX: S90.02XA Contusion of left ankle, initial encounter (principal); Z88.5 Allergy status to narcotic agent; E66.9 Obesity, unspecified; Z68.33 Body mass index [BMI] 33.0-33.9, adult; W22.8XXA Striking against or struck by other objects, initial encounter; Y93.89 Activity, other specified; Y92.89 Other specified places as the place of occurrence of the external cause; Y99.8 Other external cause status
CPT/HCPCS: 73610; 99284

== ENCOUNTER → 2018-08-12 | Outpatient (CLI) | payer BC ==
--- NOTE | 2018-08-12 14:21 | KCIC ---
EXAM: Right ankle, 3 views. HISTORY: Pain. COMPARISON: None. FINDINGS: 2 views of the right ankle are obtained. There is no fracture, dislocation or subluxation. There is diffuse ankle soft tissue swelling. No osteochondral lesion is seen. IMPRESSION: 1. No acute osseous finding. 2. Diffuse ankle soft tissue swelling. Electronically signed by: Mary Taylor MD (08/12/2018 2:17 PM) [id number]
== END | disposition home or self-care (01) ==
LOC: KCIC 13:17
PROVIDERS: ATTEND Nurse Practitioner Family
DX: R22.41 Localized swelling, mass and lump, right lower limb (principal)
CPT/HCPCS: 73610

== ENCOUNTER → 2018-08-19 | Outpatient (CLI) | payer BC ==
--- NOTE | 2018-08-19 15:59 | CARD ---
MR#: [id number] Date of Study: 08/19/2018 Ordering Physician: COLT CORADO, Referring Physician: COLT CORADO, Tech: Tamera Rader APPROVED REPORT EXAM: Two-dimensional and M-mode echocardiogram with Doppler and color Doppler. Other Information Quality : FairHR: 90bpm INDICATION Prosthetic Mitral Valve Surgery/Intervention Status/Post Mitral Valve Replacement: Mechanical Date: 2002 2D DIMENSIONS RVDd3.0 (2.9-3.5cm)Left Atrium(2D)5.0 (1.6-4.0cm) IVSd1.2 (0.7-1.1cm)Aortic Root(2D)3.1 (2.0-3.7cm) LVDd5.1 (3.9-5.9cm)LVOT Diameter2.0 (1.8-2.4cm) PWd1.5 (0.7-1.1cm)LVDs3.7 (2.5-4.0cm) FS (%) 27.3 %SV65.9 ml LVEF(%)52.7 (>50%) Aortic Valve AoV Peak Jasiel.137.7cm/sAoV VTI24.6cm AO Peak GR.7.6mmHgLVOT Peak Jasiel.82.5cm/s LVOT VTI 15.97cmAO Mean GR.4mmHg MAGO (VMAX)1.83ek3IGM (VTI)2.02cm2 Mitral Valve MV E Mean Gr.8mmHg Pulmonary Valve PV Peak Evhyvfet821.1cm/sPV Peak Grad.6mmHg Tricuspid Valve TR P. Krgvkgfc243bo/sRAP [id number] TR Peak Gr.22vzGmJKYA54pnKk Pulmonary Vein S1 Meajekuu64.0cm/sD2 Mrjyyrro57.8cm/s PVa dipzxyms724bqgk LEFT VENTRICLE The left ventricle is normal size. There is moderate concentric left ventricular hypertrophy. The lef t ventricular systolic function is normal. The Ejection Fraction is 55%. Abnormal septal motion proba linette from post-op state. RIGHT VENTRICLE The right ventricle is mildly dilated. There is normal right ventricular wall thickness. The right ve ntricular systolic function is normal. ATRIA The left atrium size is normal. The right atrium is mildly dilated. The interatrial septum is intact with no evidence for an atrial septal defect or patent foramen ovale as noted on 2-D or Doppler imagi ng. AORTIC VALVE The aortic valve is not well visualized. Doppler and Color Flow revealed trace aortic regurgitation. There is no significant aortic valvular stenosis. MITRAL VALVE Mechanical mitral valve appears well seated and functioning well. Mean gradient 8 mm Hg. TRICUSPID VALVE The tricuspid valve is not well visualized. Doppler and Color Flow revealed trace tricuspid regurgita tion. There is no tricuspid valve stenosis. PULMONIC VALVE The pulmonic valve is not well visualized. Doppler and Color Flow revealed trace pulmonic valvular re gurgitation. GREAT VESSELS The aortic root is normal in size. Normal pulmonary venous flow (Doppler). The IVC is normal in size and collapses >50% with inspiration. PERICARDIAL EFFUSION There is no evidence of significant pericardial effusion. Critical Notification Critical Value: No <Conclusion> The left ventricular systolic function is normal. The Ejection Fraction is 55%. Abnormal septal motion probably from post-op state. Mechanical mitral valve prosthesis appears well seated and functioning well. Mean gradient 8 mm Hg. Trace tricuspid regurgitation. There is no evidence of significant pericardial effusion. Signed by : Dilan Hensley, Electronically Approved : 08/19/2018 15:58:29
== END | disposition home or self-care (01) ==
LOC: ECHO 09:40
PROVIDERS: ATTEND Internal Medicine Cardiovascular Disease
DX: Z09 Encounter for follow-up examination after completed treatment for conditions other than malignant neoplasm (principal); I51.7 Cardiomegaly; Z95.2 Presence of prosthetic heart valve
CPT/HCPCS: 93306